=== PATIENT | female | born 1970 | race African-American/Black ===

== ENCOUNTER 2017-08-06 13:25 | Inpatient (IN) | payer BC ==
[~2017-08-06] VITALS: Ht 170.2 cm; Wt 74.8 kg
[2017-08-06 14:02] VITALS: BP 118/86
--- NOTE | 2017-08-06 14:06 | Emergency Room Report ---
History of Present Illness General Chief Complaint: Generalized Weakness Source: Patient, EMS Present Illness HPI Patient is a 47-year-old female who presented after increased generalized weakness. Patient had prior history of end-stage lymphoma. Patient was noted to have increased generalized weakness as well as altered mental status. She had been noted to have a port placed however this was nonfunctional due to tumor burden. The patient was noted to have a low blood pressure at home.The patient previously had a diagnosis of large diffuse B-cell lymphoma. The patient had previous a been taking [place] for pain but became constipated. She had previous chemotherapy with Revlimid. Patient was started on prednisone approximately 2 days ago. Allergies: Coded Allergies: No Known Allergies (Unverified , 08/06/17) Patient History Past Medical History: see triage record Now: No Reviewed Nursing Documentation: PMH: Agreed; PSxH: Agreed Nursing Documentation-PMH Past Medical History: No History, Except For Hx Hypertension: Yes Review of Systems All Other Systems: limited Physical Exam Vital Signs Date Time Temp Pulse Resp B/P (MAP) Pulse Ox O2 Delivery O2 Flow Rate FiO2 08/06/17 13:19 97.0 118 16 109/53 100 Room Air 97.0 Sp02 EP Interpretation: reviewed, normal General Appearance: alert, cachetic, Chronically Ill Head: atraumatic ENT: normal ENT inspection, hearing grossly normal, normal voice Neck: normal inspection, full range of motion, supple, no bony tend Respiratory: normal inspection, lungs clear, normal breath sounds, no respiratory distress, no retraction, no wheezing Cardiovascular #1: regular rate, rhythm, no edema Gastrointestinal: normal inspection, normal bowel sounds, non tender, soft, no guarding, no hernia Genitourinary: no CVA tenderness Musculoskeletal: normal inspection, back normal, normal range of motion Neurologic: normal inspection, alert, oriented x3, responsive Psychiatric: normal inspection, judgement/insight normal, mood/affect normal Skin: no rash, other - large tumor to chest wall Medical Decision Making Diagnostic Impression: Primary Impression: Episode of generalized weakness Additional Impressions: Lymphoma Renal failure (ARF), acute on chronic Hyperkalemia ER Course Patient presented for generalized weakness. Differential diagnosis included was not limited to anemia, urinary tract infection, electrolyte abnormality, hypothyroidism, myocardial infarction, myasthenia gravis, dehydration, among others. The patient was noted to have history of end-stage cancer.The patient was or given oral pain medications and oral fluids.The patient was noted to have prior history of cancer. Patient was noted to have evidence of dehydration. She was noted to have previously been thrombocytopenic. The patient was noted to have poor oral intake.Dr. Hillman was contacted for inpatient management due to complexity of medical condition. Labs Test 08/06/17 15:30 White Blood Count 4.7 K/UL (4.8-10.8) Red Blood Count 3.89 M/UL (4.20-5.40) Hemoglobin 10.7 G/DL (12.0-16.0) Hematocrit 31.7 % (37.0-47.0) Mean Corpuscular Volume 81 FL (80-99) Mean Corpuscular Hemoglobin 27.6 PG (27.0-31.0) Mean Corpuscular Hemoglobin Concent 33.9 G/DL (32.0-36.0) Red Cell Distribution Width 17.5 % (11.6-14.8) Platelet Count 39 K/UL (150-450) Mean Platelet Volume 10.7 FL (6.5-10.1) Neutrophils (%) (Auto) % (45.0-75.0) Lymphocytes (%) (Auto) % (20.0-45.0) Monocytes (%) (Auto) % (1.0-10.0) Eosinophils (%) (Auto) % (0.0-3.0) Basophils (%) (Auto) % (0.0-2.0) Differential Total Cells Counted 100 Neutrophils % (Manual) 71 % (45-75) Lymphocytes % (Manual) 10 % (20-45) Monocytes % (Manual) 14 % (1-10) Eosinophils % (Manual) 0 % (0-3) Basophils % (Manual) 0 % (0-2) Band Neutrophils 5 % (0-8) Platelet Estimate Decreased Platelet Morphology Normal Polychromasia 1+ Hypochromasia 1+ Anisocytosis 1+ Sodium Level 125 MMOL/L (136-145) Potassium Level 6.9 MMOL/L (3.5-5.1) Chloride Level 83 MMOL/L (98-107) Carbon Dioxide Level 20 MMOL/L (21-32) Anion Gap 21 mmol/L (5-15) Blood Urea Nitrogen 113 mg/dL (7-18) Creatinine 4.3 MG/DL (0.55-1.30) Estimat Glomerular Filtration Rate 11.1 mL/min (>60) Glucose Level 87 MG/DL (74-106) Calcium Level 10.2 MG/DL (8.5-10.1) Total Bilirubin 1.8 MG/DL (0.2-1.0) Direct Bilirubin 1.0 MG/DL (0.0-0.3) Aspartate Amino Transf (AST/SGOT) 219 U/L (15-37) Alanine Aminotransferase (ALT/SGPT) 62 U/L (12-78) Alkaline Phosphatase 510 U/L (46-116) Total Protein 6.6 G/DL (6.4-8.2) Albumin 2.7 G/DL (3.4-5.0) Globulin 3.9 g/dL Albumin/Globulin Ratio 0.7 (1.0-2.7) EKG Diagnostic Results Rate: tachycardiac - 106 Rhythm: NSR ST Segments: other - Peak T waves Last Vital Signs Date Time Temp Pulse Resp B/P (MAP) Pulse Ox O2 Delivery O2 Flow Rate FiO2 08/06/17 13:19 97.0 118 16 109/53 100 Room Air 97.0 Status: unchanged Disposition: ADMITTED INPATIENT Condition: Serious Jacek Snyder Aug 06, 2017 14:06
[2017-08-06 16:27] LABS: HEMATOCRIT 31.7 % (37.0-47.0); HEMOGLOBIN 10.7 G/DL (12.0-16.0); MEAN CORPUSCULAR VOLUME 81 FL (80-99); PLATELET COUNT 39 K/UL (150-450); RED BLOOD COUNT 3.89 M/UL (4.20-5.40); RED CELL DISTRIBUTION WIDTH 17.5 % (11.6-14.8); WHITE BLOOD COUNT 4.7 K/UL (4.8-10.8)
[2017-08-06 16:40] LABS: ALANINE AMINOTRANSFERASE 62 U/L (12-78); ALBUMIN 2.7 G/DL (3.4-5.0); ALBUMIN/GLOBULIN RATIO 0.7 (1.0-2.7); ALKALINE PHOSPHATASE 510 U/L (46-116); ANION GAP 21 mmol/L (5-15); ASPARTATE AMINO TRANSFERASE 219 U/L (15-37); BILIRUBIN,TOTAL 1.8 MG/DL (0.2-1.0); BLOOD UREA NITROGEN 113 mg/dL (7-18); CALCIUM 10.2 MG/DL (8.5-10.1); CARBON DIOXIDE 20 MMOL/L (21-32); CHLORIDE 83 MMOL/L (98-107); CREATININE 4.3 MG/DL (0.55-1.30); SODIUM 125 MMOL/L (136-145)
[2017-08-06 16:41] LABS: POTASSIUM 6.9 MMOL/L (3.5-5.1)
[2017-08-06] MEDS ORDERED: Calcium Gluconate 1gm/10ml vial IVP ONE (16:45)
[2017-08-06] MEDS ORDERED: Sodium Bicarbonate 50ml Carp IV ONE (16:45)
[2017-08-06] MEDS ORDERED: Hydrocortisone 100mg Inj IV ONE (16:45)
--- NOTE | 2017-08-06 16:59 | Diagnostic Imaging Report ---
Indication: Shortness of breath Technique: One view of the chest Comparison: none Findings: Slight haziness of the right greater than the left hemithoraces probably reflects overlying soft tissue. No definite infiltrates or effusions. Normal heart size. There is a right chest port catheter in good position Impression: No acute process
[2017-08-06] MEDS ORDERED: Sodium Polystyrene Sulfonate 15gm Powder ORAL ONE (17:00)
[2017-08-06] MEDS ORDERED: PREDNISONE2.5 MG ORAL (17:14)
[2017-08-06 17:59] VITALS: BP 114/79
[2017-08-06 20:00] VITALS: BP 110/86
[2017-08-06] MEDS ORDERED: Miralax 17gm pkt ORAL PRN (20:30)
[2017-08-06] MEDS ORDERED: Zolpidem 5mg tab ORAL PRN (20:30)
[2017-08-06] MEDS ORDERED: Morphine Sulfate 2mg/ml Inj IVP PRN (20:30)
[2017-08-06] MEDS ORDERED: Mylanta II UD 30ml ORAL PRN (20:30)
[2017-08-06] MEDS ORDERED: LORazepam Inj 2mg/ml 1ml IV PRN (20:30)
[2017-08-06] MEDS: Heparin 5000 units/ml inj SUBQ SCH (21:00)
--- NOTE | 2017-08-06 22:51 | History and Physical ---
History of Present Illness General Date patient seen: Aug 07, 2017 Reason for Hospitalization: Generalized Weakness Present Illness HPI 47-year-old female with history of end-stage lymphoma presented with CC of increased generalized weakness. Patient has increased generalized weakness as well as altered mental status. The patient was noted to have a low blood pressure at home. She had previous chemotherapy with Revlimid. she was suppose to be seen by a hospice company at home. But prior to their arrival, pt became hypotensive and family called paramedics. Allergies: Coded Allergies: No Known Allergies (Unverified , 08/06/17) Medication History Scheduled Prednisone* (Prednisone*), Unknown Dose ORAL DAILY, (Reported) Patient History Healthcare decision maker Resuscitation status Advanced Directive on File Past Medical/Surgical History Past Medical/Surgical History: (1) Lymphoma Review of Systems All Other Systems: negative except mentioned in HPI Physical Exam General Appearance: cachetic Lines, tubes and drains: peripheral HEENT: normocephalic Neck: non-tender Respiratory/Chest: other - extensive large tumors Breasts: no masses, other - + mass Cardiovascular/Chest: normal peripheral pulses, normal rate Abdomen: normal bowel sounds, non tender Genitourinary/Rectal: normal genital exam Extremities: normal range of motion Skin Exam: normal pigmentation Last 24 Hour Vital Signs Date Time Temp Pulse Resp B/P (MAP) Pulse Ox O2 Delivery O2 Flow Rate FiO2 08/06/17 18:40 113 15 114/79 98 Room Air 08/06/17 17:59 113 13 114/79 98 Room Air 08/06/17 14:02 110 23 118/86 100 Room Air 08/06/17 13:19 97.0 118 16 109/53 100 Room Air 97.0 Laboratory Tests Test 08/06/17 15:30 White Blood Count 4.7 K/UL (4.8-10.8) L Red Blood Count 3.89 M/UL (4.20-5.40) L Hemoglobin 10.7 G/DL (12.0-16.0) L Hematocrit 31.7 % (37.0-47.0) L Mean Corpuscular Volume 81 FL (80-99) Mean Corpuscular Hemoglobin 27.6 PG (27.0-31.0) Mean Corpuscular Hemoglobin Concent 33.9 G/DL (32.0-36.0) Red Cell Distribution Width 17.5 % (11.6-14.8) H Platelet Count 39 K/UL (150-450) L Mean Platelet Volume 10.7 FL (6.5-10.1) H Neutrophils (%) (Auto) % (45.0-75.0) Lymphocytes (%) (Auto) % (20.0-45.0) Monocytes (%) (Auto) % (1.0-10.0) Eosinophils (%) (Auto) % (0.0-3.0) Basophils (%) (Auto) % (0.0-2.0) Differential Total Cells Counted 100 Neutrophils % (Manual) 71 % (45-75) Lymphocytes % (Manual) 10 % (20-45) L Monocytes % (Manual) 14 % (1-10) H Eosinophils % (Manual) 0 % (0-3) Basophils % (Manual) 0 % (0-2) Band Neutrophils 5 % (0-8) Platelet Estimate Decreased L Platelet Morphology Normal Polychromasia 1+ Hypochromasia 1+ Anisocytosis 1+ Prothrombin Time Pending Prothromb Time International Ratio Pending Activated Partial Thromboplast Time Pending Sodium Level 125 MMOL/L (136-145) L Potassium Level 6.9 MMOL/L (3.5-5.1) *H Chloride Level 83 MMOL/L (98-107) L Carbon Dioxide Level 20 MMOL/L (21-32) L Anion Gap 21 mmol/L (5-15) H Blood Urea Nitrogen 113 mg/dL (7-18) H Creatinine 4.3 MG/DL (0.55-1.30) H Estimat Glomerular Filtration Rate 11.1 mL/min (>60) Glucose Level 87 MG/DL (74-106) Calcium Level 10.2 MG/DL (8.5-10.1) H Total Bilirubin 1.8 MG/DL (0.2-1.0) H Direct Bilirubin 1.0 MG/DL (0.0-0.3) H Aspartate Amino Transf (AST/SGOT) 219 U/L (15-37) H Alanine Aminotransferase (ALT/SGPT) 62 U/L (12-78) Alkaline Phosphatase 510 U/L (46-116) H Total Protein 6.6 G/DL (6.4-8.2) Albumin 2.7 G/DL (3.4-5.0) L Globulin 3.9 g/dL Albumin/Globulin Ratio 0.7 (1.0-2.7) L Height (Feet): 5 Height (Inches): 7.00 Weight (Pounds): 160 Medications Current Medications Medications (Trade) Dose Ordered Sig/Ceci Route PRN Reason Start Time Stop Time Status Last Admin Dose Admin Acetaminophen (Tylenol) 650 mg Q4H PRN ORAL fever 08/06/17 20:30 09/05/17 20:29 Al Hydroxide/Mg Hydroxide (Mylanta II) 30 ml Q6H PRN ORAL dyspepsia 08/06/17 20:30 09/05/17 20:29 Clonidine HCl (Catapres Tab) 0.1 mg Q4H PRN ORAL For High Blood Pressure 08/06/17 20:30 09/05/17 20:29 Dextrose (Dextrose 50%) STAT PRN IV Hypoglycemia 08/06/17 20:30 09/05/17 20:29 Heparin Sodium (Porcine) (Heparin 5000 units/ml) 5,000 units EVERY 12 HOURS SUBQ 08/06/17 21:00 09/05/17 20:59 Lorazepam (Ativan 2mg/ml 1ml) 0.5 mg Q4H PRN IV For Anxiety 08/06/17 20:30 08/13/17 20:29 Morphine Sulfate (Morphine Sulfate) 1 mg EVERY 4 HOURS PRN IVP For Pain 08/06/17 20:30 08/13/17 20:29 Ondansetron HCl (Zofran) 4 mg Q6H PRN IVP Nausea & Vomiting 08/06/17 20:30 09/05/17 20:29 Polyethylene Glycol (Miralax) 17 gm HSPRN PRN ORAL Constipation 08/06/17 20:30 09/05/17 20:29 Zolpidem Tartrate (Ambien) 5 mg HSPRN PRN ORAL Insomnia 08/06/17 20:30 08/13/17 20:29 Assessment/Plan Problem List: (1) Renal failure (ARF), acute on chronic ICD Codes: N17.9 - Acute kidney failure, unspecified; N18.9 - Chronic kidney disease, unspecified SNOMED: 311384208 (2) Lymphoma ICD Codes: C85.90 - Non-Hodgkin lymphoma, unspecified, unspecified site SNOMED: 829266807 (3) Hyperkalemia ICD Codes: E87.5 - Hyperkalemia; N18.9 - Chronic kidney disease, unspecified SNOMED: 00147475 (4) ATN (acute tubular necrosis) ICD Codes: N17.0 - Acute kidney failure with tubular necrosis SNOMED: 10825478 Assessment/Plan iv fluids renal evaluation check electrolytes family meeting to assess the plan of care. Jourdan Hillman MD Aug 06, 2017 22:51
[2017-08-07] VITALS (7 sets, daily range): BP systolic 91–130; BP diastolic 35–86
[2017-08-07 04:37] LABS: HEMATOCRIT 32.9 % (37.0-47.0); HEMOGLOBIN 11.1 G/DL (12.0-16.0); MEAN CORPUSCULAR VOLUME 82 FL (80-99); PLATELET COUNT 46 K/UL (150-450); RED BLOOD COUNT 4.03 M/UL (4.20-5.40); RED CELL DISTRIBUTION WIDTH 17.6 % (11.6-14.8); WHITE BLOOD COUNT 5.9 K/UL (4.8-10.8)
[2017-08-07 05:18] LABS: ALANINE AMINOTRANSFERASE 64 U/L (12-78); ALBUMIN 2.7 G/DL (3.4-5.0); ALBUMIN/GLOBULIN RATIO 0.8 (1.0-2.7); ALKALINE PHOSPHATASE 473 U/L (46-116); ANION GAP 20 mmol/L (5-15); ASPARTATE AMINO TRANSFERASE 229 U/L (15-37); BLOOD UREA NITROGEN 125 mg/dL (7-18); CALCIUM 9.9 MG/DL (8.5-10.1); CARBON DIOXIDE 23 MMOL/L (21-32); CHLORIDE 84 MMOL/L (98-107); CHOLESTEROL 227 MG/DL (< 200); CREATININE 4.7 MG/DL (0.55-1.30); HDL CHOLESTEROL 11 MG/DL (40-60); SODIUM 127 MMOL/L (136-145); TRIGLYCERIDES 292 MG/DL (30-150)
[2017-08-07 05:19] LABS: POTASSIUM 6.8 MMOL/L (3.5-5.1)
[2017-08-07 05:21] LABS: BILIRUBIN,DIRECT 1.2 MG/DL (0.0-0.3)
[2017-08-07 05:38] LABS: CREATINE KINASE 56 U/L (26-308)
[2017-08-07] MEDS ORDERED: Calcium Gluconate 1gm/10ml vial IVP ONE (07:45)
[2017-08-07] MEDS ORDERED: Sodium Polystyrene Sulfonate 15gm Powder RECTAL ONE (07:45)
[2017-08-07] MEDS: Heparin 5000 units/ml inj SUBQ SCH (09:00)
[2017-08-07] MEDS ORDERED: Calcium Gluconate 10% 1 GM in D5W 110 ML IVP ONE (09:00)
--- NOTE | 2017-08-07 11:38 | Diagnostic Imaging Report ---
Indication: Abnormal renal function tests, history of lymphoma Technique: Grayscale and duplex images of the kidneys, retroperitoneum, and bladder were obtained. Comparison: none Findings: Right kidney measures 10.8 cm in length. Left kidney measures 11.9 cm in length. Both kidneys demonstrate normal echogenicity. There is a mildly prominent extrarenal pelvis on the right, and equivocal mild fullness to the right renal collecting system, but no bradley hydronephrosis on either side. The right kidney demonstrates a large hypoechoic mass in the interpolar region which measures approximately 5.5 x 4.6 cm. A 13 mm cyst is seen in the right kidney. A 10 mm cyst is seen in the upper pole of the left kidney. There is possibly a calcification in the left upper pole renal sinus. Multiple masses are seen in the abdomen, particularly on the right, largest sonographically apparent mass measuring 9.6 cm long axis dimension. Normal inferior vena cava. Bladder is empty, contains a Zapien catheter. Impression: Negative for hydronephrosis Multiple abdominal masses, likely related to stated clinical history of end-stage lymphoma Mass within the right kidney. Most likely a focus of lymphoma, given stated clinical history of end-stage lymphoma, and similar appearance to other masses within the abdomen. However, the possibility of primary renal cell carcinoma as etiology of this finding should also be considered Bilateral renal cysts Empty bladder with a Zapien catheter.
[2017-08-07 11:44] LABS: APPEARANCE,URINE SLIGHTLY CLOUDY; BILIRUBIN, URINE NEGATIVE (NEGATIVE); GLUCOSE, URINE (UA) 1+ (NEGATIVE); KETONES,URINE 1+ (NEGATIVE); LEUKOCYTE ESTERASE ,URINE 1+ (NEGATIVE); NITRITE,URINE NEGATIVE (NEGATIVE); PH,URINE 5 (4.5-8.0); PROTEIN,URINE 3+ (NEGATIVE); UROBILINOGEN,URINE 1 MG/DL (0.0-1.0)
[2017-08-07 11:56] LABS: COLOR,URINE YELLOW
--- NOTE | 2017-08-07 12:54 | Pulmonology Progress Note ---
Assessment/Plan Problems: (1) Renal failure (ARF), acute on chronic (2) Lymphoma (3) Hyperkalemia (4) ATN (acute tubular necrosis) Assessment/Plan I discussed the various options, including dc home with hospice ( pt needs to be stable for transfer first) or keeping in hospital with symptomatic treatment with morphine. pts agreed with morphine orally. Pt doesn't want any iv access. Subjective Interval Events: somnolent, in pain Allergies: Coded Allergies: No Known Allergies (Unverified , 08/06/17) Objective Last 24 Hour Vital Signs Date Time Temp Pulse Resp B/P (MAP) Pulse Ox O2 Delivery O2 Flow Rate FiO2 08/07/17 08:38 115 19 122/86 98 Room Air 08/07/17 04:00 97.0 117 19 108/77 100 Room Air 97.0 08/07/17 04:00 113 08/07/17 00:00 108 08/07/17 00:00 97.0 112 19 117/74 100 Room Air 97.0 08/06/17 20:00 117 08/06/17 20:00 97.0 112 20 110/86 100 Room Air 97.0 08/06/17 18:40 113 15 114/79 98 Room Air 08/06/17 17:59 113 13 114/79 98 Room Air 08/06/17 14:02 110 23 118/86 100 Room Air 08/06/17 13:19 97.0 118 16 109/53 100 Room Air 97.0 Intake and Output 08/06/17 08/07/17 19:00 07:00 Output Total 0 ml Balance 0 ml Output Urine Total 0 ml # Voids 2 General Appearance: cachetic HEENT: normocephalic, atraumatic Respiratory/Chest: chest wall non-tender, lungs clear Breasts: other - extensive masses Cardiovascular: normal peripheral pulses Abdomen: normal bowel sounds, soft, non tender Genitourinary: normal external genitalia Skin: no rash 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 Laboratory Tests 08/06/17 15:30: White Blood Count 4.7L, Red Blood Count 3.89L, Hemoglobin 10.7L, Hematocrit 31.7L, Mean Corpuscular Volume 81, Mean Corpuscular Hemoglobin 27.6, Mean Corpuscular Hemoglobin Concent 33.9, Red Cell Distribution Width 17.5H, Platelet Count 39L, Mean Platelet Volume 10.7H, Neutrophils (%) (Auto) , Lymphocytes (%) (Auto) , Monocytes (%) (Auto) , Eosinophils (%) (Auto) , Basophils (%) (Auto) , Differential Total Cells Counted 100, Neutrophils % ( Manual) 71, Lymphocytes % (Manual) 10L, Monocytes % (Manual) 14H, Eosinophils % (Manual) 0, Basophils % (Manual) 0, Band Neutrophils 5, Platelet Estimate DecreasedL, Platelet Morphology Normal, Polychromasia 1+, Hypochromasia 1+, Anisocytosis 1+, Sodium Level 125L, Potassium Level 6.9*H, Chloride Level 83L, Carbon Dioxide Level 20L, Anion Gap 21H, Blood Urea Nitrogen 113H, Creatinine 4.3H, Estimat Glomerular Filtration Rate 11.1, Glucose Level 87, Calcium Level 10.2H, Total Bilirubin 1.8H, Direct Bilirubin 1.0H, Aspartate Amino Transf (AST/ SGOT) 219H, Alanine Aminotransferase (ALT/SGPT) 62, Alkaline Phosphatase 510H, Total Protein 6.6, Albumin 2.7L, Globulin 3.9, Albumin/Globulin Ratio 0.7L 08/07/17 04:15: White Blood Count 5.9, Red Blood Count 4.03L, Hemoglobin 11.1L, Hematocrit 32.9L , Mean Corpuscular Volume 82, Mean Corpuscular Hemoglobin 27.6, Mean Corpuscular Hemoglobin Concent 33.8, Red Cell Distribution Width 17.6H, Platelet Count 46L, Mean Platelet Volume 11.9H, Neutrophils (%) (Auto) , Lymphocytes (%) (Auto) , Monocytes (%) (Auto) , Eosinophils (%) (Auto) , Basophils (%) (Auto) , Differential Total Cells Counted 100, Neutrophils % ( Manual) 56, Lymphocytes % (Manual) 5L, Monocytes % (Manual) 31H, Eosinophils % ( Manual) 0, Basophils % (Manual) 0, Band Neutrophils 8, Platelet Estimate DecreasedL, Platelet Morphology Normal, Anisocytosis 1+, Sodium Level 127L, Potassium Level 6.8*H, Chloride Level 84L, Carbon Dioxide Level 23, Anion Gap 20H, Blood Urea Nitrogen 125H, Creatinine 4.7H, Estimat Glomerular Filtration Rate 12.1, Glucose Level 97, Calcium Level 9.9, Total Bilirubin 2.0H, Direct Bilirubin 1.2H, Aspartate Amino Transf (AST/SGOT) 229H, Alanine Aminotransferase (ALT/SGPT) 64, Alkaline Phosphatase 473H, Total Protein 6.3L, Albumin 2.7L, Globulin 3.6, Albumin/Globulin Ratio 0.8L, Nucleated Red Blood Cells 7, Hemoglobin A1c 6.1H, Osmolality 322H, Uric Acid 24.2H, Phosphorus Level 9.0H, Magnesium Level 2.7H, Total Creatine Kinase 56, Triglycerides Level 292H, Cholesterol Level 227H, LDL Cholesterol 180H, HDL Cholesterol 11L, Cholesterol/HDL Ratio 20.6H, Thyroid Stimulating Hormone (TSH) 7.073H, Free Thyroxine 1.05, Free Triiodothyronine 1.4L, Cortisol [Pending] 08/07/17 11:14: Urine Color Yellow, Urine Appearance Slightly cloudy, Urine pH 5, Urine Specific Saline 1.015, Urine Protein 3+H, Urine Glucose (UA) 1+H, Urine Ketones 1+H, Urine Occult Blood 3+H, Urine Nitrite Negative, Urine Bilirubin Negative, Urine Urobilinogen 1H, Urine Leukocyte Esterase 1+H, Urine RBC 2-4H, Urine WBC 10-15H, Urine Squamous Epithelial Cells Few, Urine Bacteria Few, Urine Eosinophils None seen, Urine Osmolality 333L, Urine Random Chloride 38L, Urine Potassium Timed 79H Current Medications Medications (Trade) Dose Ordered Sig/Ceci Route PRN Reason Start Time Stop Time Status Last Admin Dose Admin Acetaminophen (Tylenol) 650 mg Q4H PRN ORAL fever 08/06/17 20:30 09/05/17 20:29 Al Hydroxide/Mg Hydroxide (Mylanta II) 30 ml Q6H PRN ORAL dyspepsia 08/06/17 20:30 09/05/17 20:29 Clonidine HCl (Catapres Tab) 0.1 mg Q4H PRN ORAL For High Blood Pressure 08/06/17 20:30 09/05/17 20:29 Dextrose (Dextrose 50%) STAT PRN IV Hypoglycemia 08/06/17 20:30 09/05/17 20:29 Heparin Sodium (Porcine) (Heparin 5000 units/ml) 5,000 units EVERY 12 HOURS SUBQ 08/06/17 21:00 09/05/17 20:59 Lorazepam (Ativan 2mg/ml 1ml) 0.5 mg Q4H PRN IV For Anxiety 08/06/17 20:30 08/13/17 20:29 Morphine Sulfate (Morphine Sulfate) 1 mg EVERY 4 HOURS PRN IVP For Pain 08/06/17 20:30 08/13/17 20:29 08/07/17 06:27 Ondansetron HCl (Zofran) 4 mg Q6H PRN IVP Nausea & Vomiting 08/06/17 20:30 09/05/17 20:29 Polyethylene Glycol (Miralax) 17 gm HSPRN PRN ORAL Constipation 08/06/17 20:30 09/05/17 20:29 Zolpidem Tartrate (Ambien) 5 mg HSPRN PRN ORAL Insomnia 08/06/17 20:30 08/13/17 20:29 Jourdan Hillman MD Aug 07, 2017 12:54
[2017-08-07] MEDS ORDERED: Morphine Sulfate 10mg/5ml Oral Soln ud ORAL PRN (13:00)
[2017-08-07] MEDS ORDERED: Promethazine Plain 6.25mg/5ml ORAL PRN ×2 (13:00→19:00)
[2017-08-07] MEDS ORDERED: LORazepam 0.5mg tab ORAL PRN ×2 (13:15→17:15)
--- NOTE | 2017-08-07 15:04 | Consultation ---
Consult Note Consult Note asked to eval for renal failure- Patient is a 47-year-old female who presented after increased generalized weakness. Patient had prior history of end-stage lymphoma. Patient was noted to have increased generalized weakness as well as altered mental status. She had been noted to have a port placed however this was nonfunctional due to tumor burden. The patient was noted to have a low blood pressure at home.The patient previously had a diagnosis of large diffuse B-cell lymphoma. The patient had previous a been taking [place] for pain but became constipated. She had previous chemotherapy with Revlimid. Patient was started on prednisone approximately 2 days ago. discussed management sister and at bedside- large tumor to chest wall lab reviewed Assessment/Plan (1) Renal failure (ARF), acute on chronic (2) Lymphoma (3) Hyperkalemia (4) ATN (acute tubular necrosis) Patient and family decided comfort care and hospice No Dialysis cecil muñoz GEORGE Aug 07, 2017 15:04
[2017-08-07] MEDS: Morphine Sulfate 10mg/5ml Oral Soln ud ORAL PRN ×2 (16:20→20:41)
[2017-08-07] MEDS ORDERED: Mylanta II UD 30ml ORAL PRN (20:30)
[2017-08-07] MEDS ORDERED: Zolpidem 5mg tab ORAL PRN (20:30)
--- NOTE | 2017-08-08 00:46 | Consultation ---
DATE OF CONSULTATION: 08/07/2017 NOTE: POOR AUDIO HEMATOLOGY/ONCOLOGY CONSULTATION CONSULTING PHYSICIAN: Jed Duarte M.D. REQUESTING PHYSICIAN: Jourdan Hillman M.D. REASON FOR CONSULTATION: . IDENTIFICATION DATA: Dear Dr. Hillman, The patient is a pleasant 47-year-old female with past medical history significant for end-stage lymphoma, at this time presents with weakness, fatigue, altered mental status, seen by hospice , but prior to arrival the patient became hypotensive admission ____ she has been here, has been on prednisone recently. Hematology Service was consulted for further evaluation and treatment. Currently, the patient receiving morphine does not want any IV access. PAST MEDICAL HISTORY: Lymphoma. PAST SURGICAL HISTORY: None noted. ALLERGIES: No known drug allergies. REVIEW OF SYSTEMS: CONSTITUTIONAL: No fever, chills, or night sweats. SKIN: No rashes, bumps, or itching. HEENT: No headache, hearing or vision changes. BREASTS: No lumps, pain, or discharge. PULMONARY: No cough, sputum, or shortness of breath. GASTROINTESTINAL: No nausea, vomiting, or diarrhea. GENITOURINARY: No dysuria, frequency, or urgency. MUSCULOSKELETAL: No joint swelling, muscle pain, or trauma. PHYSICAL EXAMINATION: VITAL SIGNS: Reviewed. GENERAL: No distress. PULMONARY: Decreased breath sounds. CARDIOVASCULAR: Regular rate. No S3 or S4. ABDOMEN: Soft, nontender, and nondistended. EXTREMITIES: No cyanosis, swelling, or edema. NEUROLOGIC: confused at the moment. IMAGING: Chest x-ray of 08/06/2017 shows no acute process. Renal ultrasound reviewed, shows bilateral renal cysts. ASSESSMENT AND RECOMMENDATIONS: 1. Lymphoma. The patient had multiple rounds of chemotherapy, most recently on treatment with hospice. at the bedside and at this time, recommend pain control as well as hospice evaluation. 2. Anemia due to underlying chronic disease, lymphoma treatment. 3. Thrombocytopenia, likely secondary to blood dyscrasia lymphoma and on treatment. 4. Pancytopenia due to underlying issues, treatment of lymphoma versus lymphoma and displacement of bone marrow. 5. Hyperuricemia, at the chest wall, . The patient is comfort care and hospice. I appreciate the consultation. Jed Duarte M.D. DR: Venancio JOB#: [id number] CC:
[2017-08-08] MEDS: Morphine Sulfate 10mg/5ml Oral Soln ud ORAL PRN ×2 (02:19→06:37)
[2017-08-08 04:00] VITALS: BP 104/79
--- NOTE | 2017-08-08 13:31 | Nephrology Progress Note ---
Assessment/Plan Problem List: (1) Renal failure (ARF), acute on chronic (2) Hyperkalemia (3) ATN (acute tubular necrosis) Assessment (1) Renal failure (ARF), acute on chronic (2) Lymphoma (3) Hyperkalemia (4) ATN (acute tubular necrosis) Plan Patient and family decided comfort care and hospice No Dialysis meanwhile, correa and hydrate comfort care Subjective ROS Limited/Unobtainable: No Constitutional: Reports: malaise, weakness Objective Objective Last 24 Hour Vital Signs Date Time Temp Pulse Resp B/P (MAP) Pulse Ox O2 Delivery O2 Flow Rate FiO2 08/08/17 07:36 97.1 08/08/17 06:37 97.1 08/08/17 04:18 Room Air 08/08/17 04:00 97.1 130 18 104/79 100 97.1 08/08/17 02:19 97.1 08/07/17 23:52 Room Air 08/07/17 23:49 97.1 129 18 105/80 98 97.1 08/07/17 20:41 96.5 08/07/17 20:20 Room Air 08/07/17 19:58 96.5 122 18 105/77 100 96.5 08/07/17 16:20 97.5 08/07/17 16:00 97.5 122 19 91/35 99 97.5 Intake and Output 08/07/17 08/08/17 19:00 07:00 Intake Total 30 ml 160 ml Output Total 285 ml 250 ml Balance -255 ml -90 ml Intake Oral 30 ml 160 ml Output Urine Total 285 ml 250 ml Height (Feet): 5 Height (Inches): 7.00 Weight (Pounds): 165 General Appearance: no apparent distress, lethargic, confused Respiratory/Chest: decreased breath sounds ESTHER LUA Aug 08, 2017 13:31
--- NOTE | 2017-08-08 20:19 | Pulmonology Progress Note ---
Assessment/Plan Problems: (1) Renal failure (ARF), acute on chronic (2) Lymphoma (3) Hyperkalemia (4) ATN (acute tubular necrosis) Assessment/Plan I discussed the various options, including dc home with hospice ( pt needs to be stable for transfer first) or keeping in hospital with symptomatic treatment with morphine. pts agreed with morphine orally. Pt doesn't want any iv access. pt is comfortable, on oral morphine, family is aware that is imminent. Subjective ROS Limited/Unobtainable: Yes Interval Events: pt was comfortable, seen earlier today Allergies: Coded Allergies: No Known Allergies (Unverified , 08/06/17) Objective Last 24 Hour Vital Signs Date Time Temp Pulse Resp B/P (MAP) Pulse Ox O2 Delivery O2 Flow Rate FiO2 08/08/17 07:36 97.1 08/08/17 06:37 97.1 08/08/17 04:18 Room Air 08/08/17 04:00 97.1 130 18 104/79 100 97.1 08/08/17 02:19 97.1 08/07/17 23:52 Room Air 08/07/17 23:49 97.1 129 18 105/80 98 97.1 08/07/17 20:41 96.5 08/07/17 20:20 Room Air Intake and Output 08/07/17 08/08/17 19:00 07:00 Intake Total 30 ml 160 ml Output Total 285 ml 250 ml Balance -255 ml -90 ml Intake Oral 30 ml 160 ml Output Urine Total 285 ml 250 ml Objective General Appearance: cachetic Lines, tubes and drains: peripheral HEENT: normocephalic, atraumatic Neck: non-tender, normal alignment Respiratory/Chest: chest wall non-tender, lungs clear Cardiovascular/Chest: normal peripheral pulses, regular rhythm, regularly irregular Abdomen: normal bowel sounds, non tender, soft Extremities: normal range of motion, normal inspection Microbiology Date/Time Source Procedure Growth Status 08/06/17 15:30 Blood Blood Culture - Preliminary NO GROWTH AFTER 24 HOURS Resulted 08/06/17 15:30 Blood Blood Culture - Preliminary NO GROWTH AFTER 24 HOURS Resulted 08/07/17 11:14 Urine,Clean Catch Urine Culture - Preliminary NO GROWTH Resulted Jourdan Hillman MD Aug 08, 2017 20:19
--- NOTE | 2017-08-08 23:54 | General Progress Note ---
Assessment/Plan Assessment/Plan 1. Lymphoma. Poor Prognosis. --> The patient had multiple rounds of chemotherapy, most recently on treatment with hospice. --> at the bedside and at this time, recommend pain control as well as hospice evaluation. 2. Anemia due to underlying chronic disease, lymphoma treatment. --> Hemoglobin stable at this time. No blood transfusion needed. 3. Thrombocytopenia, likely secondary to blood dyscrasia lymphoma and on treatment. 4. Pancytopenia due to underlying issues, treatment of lymphoma versus lymphoma and displacement of bone marrow. 5. Hyperuricemia Subjective Date patient seen: Aug 08, 2017 Constitutional: Denies: no symptoms, chills, diaphoresis, fever, malaise, weakness, other HEENT: Denies: no symptoms, eye pain, blurred vision, tearing, double vision, ear pain, ear discharge, nose pain, nose congestion, throat pain, throat swelling, mouth pain, mouth swelling, other Cardiovascular: Denies: no symptoms, chest pain, edema, irregular heart rate, lightheadedness, palpitations, syncope, other Respiratory: Denies: no symptoms, cough, orthopnea, shortness of breath, SOB with excertion, SOB at rest, sputum, stridor, wheezing, other Gastrointestinal/Abdominal: Denies: no symptoms, abdomen distended, abdominal pain, black stools, tarry stools, blood in stool, constipated, diarrhea, difficulty swallowing, nausea, poor appetite, poor fluid intake, rectal bleeding , vomiting, other Genitourinary: Denies: no symptoms, burning, discharge, frequency, flank pain, hematuria, incontinence, pain, urgency, other Neurologic/Psychiatric: Denies: no symptoms, anxiety, depressed, emotional problems, headache, numbness, paresthesia, pre-existing deficit, seizure, tingling, tremors, weakness, other Hematologic/Lymphatic: Reports: anemia Allergies: Coded Allergies: No Known Allergies (Unverified , 08/06/17) Subjective Poor prognosis. Objective Last 24 Hour Vital Signs Date Time Temp Pulse Resp B/P (MAP) Pulse Ox O2 Delivery O2 Flow Rate FiO2 08/08/17 07:36 97.1 08/08/17 06:37 97.1 08/08/17 04:18 Room Air 08/08/17 04:00 97.1 130 18 104/79 100 97.1 08/08/17 02:19 97.1 Intake and Output 08/07/17 08/08/17 19:00 07:00 Intake Total 30 ml 160 ml Output Total 285 ml 250 ml Balance -255 ml -90 ml Intake Oral 30 ml 160 ml Output Urine Total 285 ml 250 ml Height (Feet): 5 Height (Inches): 7.00 Weight (Pounds): 165 General Appearance: lethargic Respiratory/Chest: decreased breath sounds Jed Duarte MD Aug 08, 2017 23:54
--- NOTE | 2017-08-09 21:45 | Discharge Summary 2 SIG ---
DATE OF ADMISSION: 08/06/2017 DATE OF DISCHARGE: 08/08/2017 BRIEF SUMMARY BRIEF HOSPITAL COURSE: The patient was an unfortunate 47-year-old female with history of end-stage lymphoma, who presented to ED due to increased generalized weakness as well as altered mental status. She was noted to have low blood pressure at home. She had previous chemotherapy with Revlimid. She was supposed to be seen by a hospice company at home, however, prior to hospice arrival, the patient became hypotensive and family called paramedics. On evaluation at ED, she was given pain medications and fluids. She was noted to have evidence of dehydration. Creatinine was elevated to 4.3. She had thrombocytopenia, platelet count of 39,000. She was noted to have poor oral intake due to complexity of medical condition. Potassium was 6.9. Due to complexity of medical condition, the patient was admitted for inpatient care. The patient had renal failure. No dialysis as the patient's family wanted comfort care. She was given Kayexalate, calcium gluconate, insulin, and dextrose. She was given IV hydration and was placed on comfort care. The patient did not want any IV access. She was given morphine orally and was noted to be comfortable on oral morphine. She eventually . FINAL DIAGNOSES: 1. Lymphoma. 2. Acute on chronic renal failure. 3. Acute tubular necrosis. 4. Hyperkalemia. 5. Pancytopenia. 6. Anemia due to underlying chronic disease. 7. Thrombocytopenia, likely secondary to blood dyscrasia and treatment. 8. Hyperuricemia. 9. Comfort care/hospice. DISPOSITION: The patient . Jourdan Hillman M.D. I have been assigned to dictate discharge summary on this account and I was not involved in the patient's management. Courtney Mckeon N.P. DR: Kristal JOB#: [id number] CC: TIERA
== END 2017-08-08 14:10 | disposition expired | DRG 840 ==
LOC: EDBD 13:25 → MERGE 15:50 → EMR 15:50 → UNDOADMIN 15:57 → 2E 15:57 → 4E 15:57 → EDBEDREQ 16:57 → EDBEDREQSVC 17:28 → EDBEDREQ 17:40 → 2E 18:18 → 4W 08-07 15:01
DX: C85.90 Non-Hodgkin lymphoma, unspecified, unspecified site (principal); N17.0 Acute kidney failure with tubular necrosis; D61.818 Other pancytopenia; Z51.5 Encounter for palliative care; N18.9 Chronic kidney disease, unspecified; Z66 Do not resuscitate; E87.5 Hyperkalemia; E86.0 Dehydration; D63.8 Anemia in other chronic diseases classified elsewhere; D64.81 Anemia due to antineoplastic chemotherapy
CPT/HCPCS: 36415; 71045; 76770; 80053; 80061; 81001; 82248; 82436; 82533; 82550; 83036; 83735; 83930; 83935; 84100; 84133; 84439; 84443; 84481; 84550; 85007; 85025; 86850; 86900; 86901; 87040; 87086; 89050; 93005; 99285